=== PATIENT | female | born 1945 | race Caucasian/White ===

== ENCOUNTER → 2017-02-06 | Day surgery (SDC) | payer MEDICARE, BC ==
[2017-02-04 09:51] LABS: BASOPHILS # (AUTO) 0.1 (0.0-0.1); BASOPHILS % 1.1 % (0.0-1.0); EOSINOPHILS # (AUTO) 0.2 (0.0-0.4); EOSINOPHILS % 3.6 % (0.0-6.0); HEMATOCRIT 40.6 % (34.2-44.1); HEMOGLOBIN 13.5 g/dL (12.0-16.0); LYMPHOCYTES # (AUTO) 1.8 (1.0-3.2); LYMPHOCYTES % 37.4 % (18.0-39.1); MEAN CORPUSCULAR HEMOGLOBIN 29.9 pg (28-32); MEAN CORPUSCULAR HGB CONC 33.3 g/dL (31-35); MONOCYTES # (AUTO) 0.4 (0.2-0.8); MONOCYTES % 7.6 % (4.4-11.3); NEUTROPHILS # (AUTO) 2.4 (2.1-6.9); NEUTROPHILS % 50.1 % (38.7-80.0); PLATELET COUNT 256 x10e3/uL (140-360); RED BLOOD COUNT 4.51 x10e6/uL (3.6-5.1); RED CELL DISTRIBUTION WIDTH 12.9 % (11.7-14.4)
[2017-02-04 10:12] LABS: ALBUMIN 3.9 g/dL (3.5-5.0); ALBUMIN/GLOBULIN RATIO 1.2 (0.8-2.0); CALCIUM 9.9 mg/dL (8.4-10.2); CREATININE, SERUM 0.93 mg/dL (0.57-1.11)
--- NOTE | 2017-02-04 10:30 | Diagnostic Imaging Report ---
PROCEDURE: Frontal and lateral views of the chest. COMPARISON: None. INDICATIONS: PREOPERATIVE CHEST XRAY FOR GALLBLADDER SURGERY FINDINGS: Lines/tubes: None. Lungs: The lungs are well inflated and clear. There is no evidence of pneumonia or pulmonary edema. Pleura: There is no pleural effusion or pneumothorax. Heart and mediastinum: The heart and the mediastinum are normal. Bones: No acute bony abnormality. Degenerative changes of the thoracic spine. IMPRESSION: No acute radiographic abnormality. Dictated by: Tereso Clemens M.D. on 02/04/2017 at 10:38 Electronically approved by: Tereso Clemens M.D. on 02/04/2017 at 10:38
[~2017-02-06] MED LIST: ATORVASTATIN CA20 MG PO; BUPIVACAINE HCL 0.5% INJ 30 ML VIAL INJ ONE; BUPROPION XL150 MG PO; CEFAZOLIN SOD 2 GM/D5W 50ML 50 ML IV ONE; CITALOPRAM HBR20 MG PO; DEXAMETHASONE SOD PHOS INJ 4 MG/ML VIAL ONE; FENTANYL CITRATE/PF 100MCG/2 ML INJ ONE; GLYCOPYRROLATE INJ 1MG/ 5 ML SYR ONE; HYDROMORPHONE 2MG/ML INJ ONE; LIDOCAINE HCL 2% LOCAL INJ 5 ML SDV VIAL INJ ONE; METOCLOPRAMIDE HCL 10 MG/2ML VIAL ONE; MIDAZOLAM HCL 2 MG/2 ML VIAL ONE; NEOSTIGMINE 5 MG/5ML SYR ONE; ONDANSETRON HCL INJ 2 MG/ML VIAL ONE; PROPOFOL IV EMULSION 10 MG/ML 20 ML VIAL ONE; ROCURONIUM BROMIDE 10 MG/ML 5ML VIAL ONE; SEVOFLURANE INHAL SOLN 250 ML PEN BTL ONE; TRIAMTERENE-HC1 EAC2 PO
--- NOTE | 2017-02-06 13:15 | Operative Report ---
DATE OF PROCEDURE: February 06, 2017 PREOPERATIVE DIAGNOSIS: Chronic cholecystitis. POSTOPERATIVE DIAGNOSIS: Chronic cholecystitis with cholelithiasis. TITLE OF PROCEDURE: Diagnostic laparoscopy. Laparoscopic cholecystectomy. CERTIFIED ORTHOTIST: None. ANESTHESIA: General endotracheal. INDICATIONS AND FINDINGS: The patient is a 71-year-old female who presented with complaint of right upper quadrant abdominal pain. Workup revealed abnormal HIDA scan with low ejection fraction, also gallbladder polyps. At surgery, gallbladder had adhesions involving omentum and duodenum over the neck and fundus of the gallbladder. There was at least 1 small stone in the gallbladder. Cystic duct was about 2 mm in diameter and common bile duct about 5 mm in diameter. Liver, stomach and lower abdomen all appeared normal. TECHNIQUE: After adequate general endotracheal anesthesia, with the patient in supine position, the abdomen was prepped and draped in a sterile fashion with Jose solution. Skin of the umbilicus was infiltrated with 0.5% Marcaine. Incision was made in the umbilicus. Abdominal wall was elevated, and a Veress needle was introduced. Pneumoperitoneum was then created. A 10-mm trocar and cannula were then passed through the umbilical wound. Laparoscopic camera was introduced. Initial laparoscopy revealed some adhesions around the area of the gallbladder. Liver, stomach and lower abdomen all appeared normal. A 10-mm trocar and cannula were placed in the epigastrium, and two 5-mm trocars and cannulas were placed in the right upper quadrant. These were placed under direct vision. Adhesions around the fundus of the gallbladder were lysed. The fundus of the gallbladder was grasped and retracted superiorly. The remaining adhesions to the gallbladder were lysed. These involved the omentum and duodenum. Neck of the gallbladder was grasped and retracted laterally. Peritoneum over the neck of the gallbladder was incised. The gallbladder-cystic duct junction was dissected free. Cystic artery was also dissected free. Cystic artery was divided between Hemoclips close the gallbladder. Cystic duct also divided between Hemoclips, with 3 clips being left on the common bile duct side. The gallbladder was dissected free from the liver using scissors and electrocautery. Once it was entirely free, it was placed into an Endo pouch and brought out through the epigastric cannula. It contained at least 1 small stone. Gallbladder bed was inspected for hemostasis, which was seen to be adequate. It was irrigated with saline. All fluid aspirated and inspected once again for hemostasis, which was seen to be adequate. Instruments and cannulas were then removed. Pneumoperitoneum was evacuated. Wounds were then closed. Fascia in the umbilical and epigastric wound closed with #0 Vicryl. Skin to all wounds closed with 4-0 Vicryl in subcuticular fashion. Dermabond and sterile dressing were applied to each wound. Patient tolerated the procedure well. Estimated blood loss was 20 mL. There were no complications. All counts were correct. Patient was taken to the recovery room in satisfactory condition. Job#: [id number]
== END | disposition home or self-care (01) ==
LOC: OR 08:47
PROVIDERS: ATTEND Surgery
DX: K80.10 Calculus of gallbladder with chronic cholecystitis without obstruction (principal); K82.8 Other specified diseases of gallbladder; F41.9 Anxiety disorder, unspecified; F32.9 Major depressive disorder, single episode, unspecified; Z01.810 Encounter for preprocedural cardiovascular examination; Z01.812 Encounter for preprocedural laboratory examination; Z01.818 Encounter for other preprocedural examination; Z68.34 Body mass index [BMI] 34.0-34.9, adult
CPT/HCPCS: 36415; 47562; 71020; 80053; 85025; 88304; 93005; J1100; J1170; J2001; J2250; J2405; J2765

== ENCOUNTER → 2018-11-10 | Day surgery (SDC) | payer MEDICARE, BC ==
[~2018-11-10] MED LIST changes: -BUPIVACAINE HCL 0.5% INJ 30 ML VIAL INJ ONE; -CEFAZOLIN SOD 2 GM/D5W 50ML 50 ML IV ONE; -DEXAMETHASONE SOD PHOS INJ 4 MG/ML VIAL ONE; -GLYCOPYRROLATE INJ 1MG/ 5 ML SYR ONE; -HYDROMORPHONE 2MG/ML INJ ONE; -LIDOCAINE HCL 2% LOCAL INJ 5 ML SDV VIAL INJ ONE; -METOCLOPRAMIDE HCL 10 MG/2ML VIAL ONE; +MULTI-VITAMIN1 EACH PO; -NEOSTIGMINE 5 MG/5ML SYR ONE; -ONDANSETRON HCL INJ 2 MG/ML VIAL ONE; +OR PHACO EYE KIT ONE; +PREOP PHACO EYE KIT ONE; -PROPOFOL IV EMULSION 10 MG/ML 20 ML VIAL ONE; -ROCURONIUM BROMIDE 10 MG/ML 5ML VIAL ONE; -SEVOFLURANE INHAL SOLN 250 ML PEN BTL ONE; +VITAMIN D3400 UNI1 PO
--- OUTSIDE RECORDS SUMMARY | 2018-11-10 05:35 | XMS REPORT ---
Author Author [facility] Address Unknown Phone Unavailable Care Team Providers Care Wood Barker Name Role Phone ROWDY MELGAR Unavailable Unavailable ANTHONY GHOSH Unavailable Unavailable Payers Payer Name Policy Type Policy Number Effective Date Expiration Date Problems This patient has no known problems. Allergies, Adverse Reactions, Alerts Allergy Name Allergy Type Status Severity Reaction(s) Onset Date Inactive Date Treating Clinician Comments Sulfa (Sulfonamide Antibiotics) DA Active MO 2008-12-29 00:00:00 Medications This patient has no known medications. Results Test Description Test Time Test Comments Text Results Atomic Results Result Comments CHEST 2 VIEWS [place] [address] Patient Name: NAEEM JUNIOR MR #: [id number] : 1945 Age/Sex: 71/F Req #: [id number] Adm Physician: Ordered by: JES PARRISH MD Report #: [id number] Location: OR Room/Bed: Procedure: [id number] DX/CHEST 2 VIEWS Exam Date: 02/04/17 Exam Time: 0945 REPORT STATUS: Signed PROCEDURE: Frontal and lateral views of the chest. COMPARISON: None. INDICATIONS: PREOPERATIVE CHEST XRAY FOR GALLBLADDER SURGERY FINDINGS: Lines/tubes: None. Lungs: The lungs are well inflated and clear. There is no evidence of pneumonia or pulmonary edema. Pleura: There is no pleural effusion or pneumothorax. Heart and mediastinum: The heart and the mediastinum are normal. Bones: No acute bony abnormality. Degenerative changes of the thoracic spine. IMPRESSION: No acute radiographic abnormality. Dictated by: Ann Simon M.D. on 02/04/2017 at 10:38 Electronically approved by: Ann Simon M.D. on 02/04/2017 at 10:38 Dictated By: ANN SIMON MD [id number] Transcribed By: ALETA on 02/04/17 1038 COPY TO: JES PARRISH MD HEPTOBILIARY W PHARM [place] [address] Patient Name: NAEEM JUNIOR MR #: [id number] : 1945 Age/Sex: 71/F Req #: [id number] Adm Physician: Ordered by: ANTHONY GHOSH MD Report #: [id number] Location: DC Room/Bed: Procedure: [id number] NM/HEPTOBILIARY W PHARM Exam Date: 01/08/17 Exam Time: 0830 REPORT STATUS: Signed Hepatobiliary Scan with Gallbladder Ejection Fraction Clinical information: Chronic intermittent RUQ abdominal pain with bloating Technique: Following intravenous administration of 6.3 millicuries of Tc-99m mebrofenin, dynamic images of the abdomen in the anterior projection were obtained through 60 minutes. Sincalide (CCK analog) 2.0 micrograms was administered intravenously over 30 minutes with additional imaging for determination of gallbladder ejection fraction. Discussion: Perfusion of the liver is normal. Extraction of tracer by the liver parenchyma is normal. Tracer appears promptly within the biliary tract. The gallbladder begins to fill by 10 minutes post injection of tracer and fills adequately. Tracer is seen in the small bowel by 30 minutes. The gallbladder ejection fraction with sincalide is 36% (normal greater than 40%). Impression: 1. Filling of the gallbladder excludes acute cystic duct obstruction/acute cholecystitis. 2. The decreased gallbladder ejection fraction of 36% supports the clinical diagnosis of chronic cholecystitis/gallbladder dyskinesia. Signed by: Dr. Jessie Rodriguez M.D. on 01/08/2017 6:31 PM Dictated By: JESSIE RODRIGUEZ MD 30 Transcribed By: CHRISTOPHER on 01/08/171830 COPY TO: ANTHONY GHOSH MD US ABDOMEN COMPLETE [place] [address] Patient Name: NAEEM JUNIOR MR #: [id number] : 1945 Age/Sex: 71/F Req #: [id number] Adm Physician: Ordered by: ANTHONY GHOSH MD Report #: [id number] Location: Room/Bed: Procedure: [id number] US/US ABDOMEN COMPLETE Exam Date: Exam Time: REPORT STATUS: Signed PROCEDURE: ABDOMINAL ULTRASOUND COMPARISON: None. INDICATIONS: Right Upper Quadrant Pain FINDINGS: Liver: 14.0 cm. Normal hepatic parenchymal echogenicity. No focal mass. Main portal vein: 8.0 mm. Hepatopedal flow. Gallbladder: Non-mobile non-shadowing 6.0 mm echogenic focus is present in the gallbladder wall. No echogenic calculi, gallbladder wall thickening, or pericholecystic fluid. Common Bile Duct: 3.0 mm. No echogenic filling defect. Sonographic Marcial's sign: Negative. Right kidney: 9.5 cm. No solid or cystic mass, echogenic calculi, or hydronephrosis. Normal parenchymal echogenicity. Left kidney: 9.3 cm. No solid or cystic mass, echogenic calculi, or hydronephrosis. Normal parenchymal echogenicity. Spleen: 8.7 cm. No focal mass. Pancreas: The visualized portions of the pancreas are normal. Inferior vena cava: Normal. Aorta: Normal. Ascites: None. CONCLUSION: 1. No acute sonographic abnormality. 2. Gallbladder polyp. Dictated by: Ann Simon M.D. on 12/11/2016 at 9:58 Electronically approved by: Ann Simon M.D. on 12/11/2016 at 9:58 Dictated By: ANN SIMON MD 7 Transcribed By: ALETA on 12/11/16957 COPY TO: ANTHONY GHOSH MD
[2018-11-10 07:50] VITALS: BP 125/83
== END | disposition home or self-care (01) ==
LOC: OR 05:29
PROVIDERS: ATTEND Ophthalmology
DX: H25.12 Age-related nuclear cataract, left eye (principal); I10 Essential (primary) hypertension; F32.9 Major depressive disorder, single episode, unspecified; Z88.2 Allergy status to sulfonamides
CPT/HCPCS: 66984; J2250; J3010

== ENCOUNTER → 2018-12-08 | Day surgery (SDC) | payer MEDICARE, BC ==
[2018-12-08 12:15] VITALS: BP 110/89
== END | disposition home or self-care (01) ==
LOC: OR 08:20
PROVIDERS: ATTEND Ophthalmology
DX: H25.11 Age-related nuclear cataract, right eye (principal); E78.5 Hyperlipidemia, unspecified; F32.9 Major depressive disorder, single episode, unspecified; F41.9 Anxiety disorder, unspecified; Z88.2 Allergy status to sulfonamides
CPT/HCPCS: 66984; J2250; J3010; V2632

== ENCOUNTER → 2019-11-29 | Outpatient (CLI) | payer MEDICARE, BC ==
[~2019-11-29] MED LIST changes: -FENTANYL CITRATE/PF 100MCG/2 ML INJ ONE; -MIDAZOLAM HCL 2 MG/2 ML VIAL ONE; -OR PHACO EYE KIT ONE; -PREOP PHACO EYE KIT ONE
== END ==
LOC: MRI 10:50
PROVIDERS: ATTEND Family Medicine
DX: M54.5 Low back pain (principal)
CPT/HCPCS: 72148